=== PATIENT | female | born 1965 | race Two or more races ===

== ENCOUNTER 2017-05-03 08:27 | Day surgery (SDC) | payer OTHER ==
[2017-05-03] VITALS (18 sets, daily range): BP systolic 85–135; BP diastolic 41–69; PULSE 64–90; RESP 11–29; Ht 165.1 cm; Wt 66.7 kg
[~2017-05-03] VITALS: Ht 165.1 cm; Wt 66.7 kg
[~2017-05-03 08:27] MED LIST: CLINDAMYCIN 600 MG/D5W (PMX) 50 ML IVPB ONE; SOD CHLORIDE 0.9% 1,000 ML IV ONE
[2017-05-03] MEDS ORDERED: BUPIVACAINE 0.25% (MPF) 30 ML INJ ONE (09:59)
[2017-05-03] MEDS ORDERED: CEFAZOLIN 1 GM INJ ONE (10:20)
[2017-05-03] MEDS ORDERED: ROCURONIUM 50 MG INJ ONE (10:20)
[2017-05-03] MEDS ORDERED: GLYCOPYRROLATE 0.4 MG INJ ONE (10:20)
[2017-05-03] MEDS ORDERED: NEOSTIGMINE 3 MG/3 ML SYRINGE ONE (10:20)
[2017-05-03] MEDS ORDERED: PROPOFOL 20 ML ONE (10:20)
[2017-05-03] MEDS ORDERED: MIDAZOLAM 1 MG/ML 2 ML INJ ONE (10:21)
[2017-05-03] MEDS ORDERED: DEXAMETHASONE 4 MG/ML 1 ML INJ ONE (10:21)
[2017-05-03] MEDS ORDERED: FENTAnyl 50 MCG/ML VIAL ONE (10:21)
[2017-05-03] MEDS ORDERED: ONDANSETRON 4 MG INJ ONE (10:21)
--- NOTE | 2017-05-03 10:34 | RADRPT ---
PROCEDURE: XR Chest. CLINICAL INDICATION: Preoperative TECHNIQUE: Single frontal view of the chest was obtained COMPARISON: None FINDINGS: No pleural effusion or pneumothorax. No consolidation. Unremarkable cardiomediastinal silhouette. No acute osseous abnormality. IMPRESSION: No acute cardiopulmonary disease. RPTAT: EE Physician Germain Date Time Electronically viewed and signed by Sarah Boone Physician on 05/03/2017 10:33 /
[2017-05-03] MEDS ORDERED: MEPERIDINE 25 MG INJ IV PRN (11:00)
[2017-05-03] MEDS ORDERED: HYDROmorphONE (0.2 MG/ML) 10ML SYG IV PRN ×2 (11:00)
[2017-05-03] MEDS ORDERED: ALBUTEROL 0.083% (NEB) 2.5 MG/3 ML AMP HHN PRN (11:00)
[2017-05-03] MEDS ORDERED: EPHEDrine SULFATE 50 MG/5 ML SYG IV PRN (11:00)
[2017-05-03] MEDS ORDERED: DIPHENHYDRAMINE 50 MG INJ IV PRN (11:00)
[2017-05-03] MEDS ORDERED: FENTAnyl 50 MCG/ML VIAL IV PRN ×3 (11:00)
[2017-05-03] MEDS ORDERED: LABETALOL HCL 20MG INJ IV PRN (11:00)
[2017-05-03] MEDS ORDERED: hydrALAzine 20 MG INJ IV PRN (11:00)
[2017-05-03] MEDS ORDERED: MIDAZOLAM 1 MG/ML 2 ML INJ IV PRN (11:00)
[2017-05-03] MEDS ORDERED: OXYCODONE/ACETAMINOPHEN (5/325) TAB PO PRN ×2 (11:00)
[2017-05-03] MEDS ORDERED: TRIMETHOBENZAMIDE 100 MG/ML VIAL IM PRN (11:00)
[2017-05-03] MEDS ORDERED: IPRATROPIUM (NEB) 0.5 MG/2.5 ML AMP HHN PRN (11:00)
--- NOTE | 2017-05-03 11:24 | SIPON ---
Date/Time of Note Date/Time of Note DATE: 05/03/17 TIME: 11:14 Operative Report Preoperative Diagnosis hemorrhoids Postoperative Diagnosis hemorrhoids Operation/Procedure Performed 1. hemorrhoidectomy 2. rigid proctoscopy 3. therapeutic injection of subcutaneous local anesthesia Surgeon see signature line benefits assistant none Anesthesia: general Estimated blood loss: 10 - 50 ml's Transfusion Required none Specimen right posterior hemorrhoidal column Grafts/Implants none Complications none Javan STRONG May 03, 2017 11:15
[2017-05-03] MEDS ORDERED: HYDROCODONE/APAP (5/325) TAB PO ONE (11:30)
[2017-05-03] MEDS: HYDROmorphONE (0.2 MG/ML) 10ML SYG IV PRN ×2 (12:00→12:05)
[2017-05-03] MEDS: ONDANSETRON 4 MG INJ IV PRN ×2 (12:00→12:35)
--- NOTE | 2017-05-03 12:24 | OPR ---
DATE OF OPERATION: 05/03/2017 INDICATION: This is a 51-year-old female with large internal and external hemorrhoids. She requests surgical excision. Risks, alternatives, benefits of procedure were discussed. The expressed understanding and consents to the operation. PREOPERATIVE DIAGNOSIS: Large internal and external hemorrhoids. POSTOPERATIVE DIAGNOSIS: Large internal and external hemorrhoids. OPERATION PERFORMED: 1. Hemorrhoidectomy. 2. Rigid proctoscopy. 3. Therapeutic injection of subcutaneous local anesthesia. SURGEON: Arnoldo Weiner MD SPECIMEN: Right posterior hemorrhoids. COMPLICATIONS: None. ANESTHESIA: General. ESTIMATED BLOOD LOSS: EBL is 15 cc. OPERATIVE PROCEDURE: Patient taken to the OR, prepped and draped in usual sterile fashion. Surgical time-out was performed. IV antibiotics were given. Rigid proctoscopy was performed. There appears to be a poor prep, however, there was no evidence of any masses or lesions obstructing the anal canal. Attention was then paid to the right posterior column. [id number] 3-0 Vicryl sutures used to ligate the right posterior internal hemorrhoidal artery. Internal and external hemorrhoidal complex was then excised with a 15 blade and cautery. The internal and external hemorrhoidal complex was cauterized and excised. There was good hemostasis. The tissue defect was then closed with a running 3-0 Vicryl from proximal distal and a small opening left distally to allow for drainage. There was good hemostasis. Therapeutic subcutaneous local anesthesia was injected throughout the incision. Dry dressings were applied. Dictated By: Jillian De León /[email or web address] /Document#: [id number]
--- NOTE | 2017-05-06 09:12 | RADRPT ---
Vent Rate: 63 bpm RR Interval: 0 msec WV Interval: 116 msec QRS Duration: 84 msec QT Interval: 390 msec QTC Interval: 399 msec P-R-T [place]: 43 - 58 - 51 degrees Normal sinus rhythm Normal ECG Electronically Signed By: Luis Manuel Muñoz [id number]
== END 2017-05-03 15:52 | disposition home or self-care (01) ==
LOC: SDS 08:27
PROVIDERS: ATTEND Surgery
DX: K64.8 Other hemorrhoids (principal); K64.4 Residual hemorrhoidal skin tags
CPT/HCPCS: 46255; 71010; 84703; 88304; 93005; J0690; J1100; J1170; J2250; J2405; J3010; Z7512; Z7610; J2710